=== PATIENT | male | born 1935 | race Caucasian/White ===

== ENCOUNTER 2017-11-05 16:55 | Emergency (ER) | payer MEDICARE, BC ==
[~2017-11-05] VITALS: Ht 182.9 cm; Wt 93.6 kg
[2017-11-05 17:00] VITALS: Ht 182.9 cm; Wt 93.6 kg
[2017-11-05] MEDS ORDERED: COUMADIN1 MG (17:03)
[2017-11-05] MEDS ORDERED: TYLENOL W/CODEI1 TAB PO (19:39)
[2017-11-06 04:22] VITALS: BP 118/88
== END 2017-11-05 20:10 | disposition home or self-care (01) ==
LOC: D.ER 16:55
DX: S16.1XXA Strain of muscle, fascia and tendon at neck level, initial encounter (principal); V43.62XA Car passenger injured in collision with other type car in traffic accident, initial encounter; Y93.89 Activity, other specified; Y92.410 Unspecified street and highway as the place of occurrence of the external cause; S39.012A Strain of muscle, fascia and tendon of lower back, initial encounter; M54.6 Pain in thoracic spine

== ENCOUNTER → 2018-06-03 16:41 | Outpatient (CLI) | payer MEDICARE, BC ==
[2017-11-05 17:00] VITALS: BMI 28.0
[~2018-06-03 16:41] MED LIST: COUMADIN1 MG; TYLENOL W/CODEI1 TAB PO
== END | disposition home or self-care (01) ==
LOC: D.US 16:41
DX: R60.0 Localized edema (principal)

== ENCOUNTER 2019-11-25 17:52 | Emergency (ER) | payer OTHER ==
[~2019-11-25] VITALS: Ht 182.9 cm; Wt 90.9 kg
[2019-11-25 18:00] VITALS: Ht 182.9 cm; Wt 90.9 kg
[2019-11-25 18:27] LABS: HEMATOCRIT 43.1 % (42.0-54.0); HEMOGLOBIN 14.3 g/dL (13.5-17.5); LYMPHOCYTES 30.1 % (15-50); MCH 30.3 pg (26.0-34.0); MCHC 33.2 g/dL (31.0-37.0); MCV 91.3 fL (80.0-100.0); MEAN PLATELET VOLUME 8.9 fL (7.4-10.4); NEUTROPHILS 51.5 % (40-80); PLATELET COUNT 186 10x3/uL (130-400); RBC 4.72 10x6/uL (4.20-6.10); RDW 13.6 % (11.5-14.5); WBC 5.8 10x3/uL (4.8-10.8)
[2019-11-25] MEDS ORDERED: PHOSLO667 MG PO (18:35)
[2019-11-25] MEDS ORDERED: K-DUR20 MEQ PO (18:35)
[2019-11-25] MEDS ORDERED: ELIQUIS5 MG PO (18:35)
[2019-11-25 18:36] LABS: CALC OSMOLALITY 275 mosm/kg (275-300); CALCIUM 9.1 mg/dL (8.5-10.1); CHLORIDE - SERUM 101 mmol/L (98-107); CREATININE - SERUM 1.4 mg/dL (0.6-1.3); POTASSIUM - SERUM 3.4 mmol/L (3.5-5.1); SODIUM 137 mmol/L (136-145); UREA NITROGEN 18 mg/dL (7-18); eGFR NON AFRICAN AMERICAN 51 mL/min (90-120)
[2019-11-25] MEDS ORDERED: LISINOPRIL-HCT1 EAC4 PO (18:36)
[2019-11-25] MEDS ORDERED: NEURONTIN600 MG PO (18:36)
[2019-11-25] MEDS ORDERED: VITAMIN D1000 UNIT PO (18:36)
[2019-11-25 18:37] LABS: GLUCOSE 102 mg/dL (74-106)
[2019-11-25] MEDS ORDERED: ZOCOR10 MG PO (18:37)
[2019-11-25] MEDS ORDERED: TYLENOL W/CODEI1 TAB (18:37)
[2019-11-25 18:45] LABS: ALBUMIN 3.6 g/dL (3.4-5.0); ALKALINE PHOSPHATASE 81 U/L (30-120); ALT (SGPT) 24 U/L (10-68); AMYLASE - SERUM 30 U/L (25-115); BILIRUBIN - TOTAL 0.31 mg/dL (0.2-1.3); LIPASE 170 U/L (73-393); PROTEIN - SERUM 6.9 g/dL (6.4-8.2)
[2019-11-25 18:47] LABS: TROPONIN-I < 0.017 ng/mL (0.000-0.060)
[2019-11-25 19:18] LABS: BILIRUBIN NEGATIVE (NEGATIVE); GLUCOSE NEGATIVE (NEGATIVE); KETONE NEGATIVE (NEGATIVE); NITRITE NEGATIVE (NEGATIVE); SPECIFIC GRAVITY 1.015 (1.005-1.020); UROBILINOGEN NORMAL (NORMAL)
[2019-11-25] MEDS ORDERED: LOMOTIL 2.5-0.1 EAC1 PO (20:20)
[2019-11-25] MEDS ORDERED: ZOFRAN ODT4 MG/UDTAB PO (20:20)
[2019-11-25 20:41] VITALS: BP 140/92
== END 2019-11-25 20:42 | disposition home or self-care (01) ==
LOC: D.ER 17:52
PROVIDERS: Family Medicine
DX: R19.7 Diarrhea, unspecified (principal); E11.9 Type 2 diabetes mellitus without complications; Z86.73 Personal history of transient ischemic attack (TIA), and cerebral infarction without residual deficits; I10 Essential (primary) hypertension; J44.9 Chronic obstructive pulmonary disease, unspecified

== ENCOUNTER 2019-11-28 12:27 | Emergency (ER) | payer OTHER ==
[~2019-11-28] VITALS: Ht 182.9 cm; Wt 81.8 kg
[~2019-11-28 12:27] MED LIST changes: +ELIQUIS5 MG PO; +K-DUR20 MEQ PO; +LISINOPRIL-HCT1 EAC4 PO; +LOMOTIL 2.5-0.1 EAC1 PO; +NEURONTIN600 MG PO; +PHOSLO667 MG PO; +TYLENOL W/CODEI1 TAB; +VITAMIN D1000 UNIT PO; +ZOCOR10 MG PO; +ZOFRAN ODT4 MG/UDTAB PO
[2019-11-28 12:36] VITALS: Ht 182.9 cm; Wt 81.8 kg
[2019-11-28 13:36] LABS: BASOPHILS 0.2 % (0-2); EOSINOPHILS 5.3 % (0-7); HEMATOCRIT 41.1 % (42.0-54.0); HEMOGLOBIN 13.5 g/dL (13.5-17.5); IMMATURE GRANULOCYTES 0.2 % (0-5); LYMPHOCYTES 29.7 % (15-50); MCH 30.3 pg (26.0-34.0); MCHC 32.8 g/dL (31.0-37.0); MCV 92.2 fL (80.0-100.0); MEAN PLATELET VOLUME 9.1 fL (7.4-10.4); MONOCYTES 12.3 % (2-11); NEUTROPHILS 52.3 % (40-80); PLATELET COUNT 181 10x3/uL (130-400); RBC 4.46 10x6/uL (4.20-6.10); RDW 13.6 % (11.5-14.5); WBC 6.2 10x3/uL (4.8-10.8)
[2019-11-28 14:02] LABS: BILIRUBIN NEGATIVE (NEGATIVE); GLUCOSE NEGATIVE (NEGATIVE); KETONE NEGATIVE (NEGATIVE); NITRITE NEGATIVE (NEGATIVE); SPECIFIC GRAVITY 1.015 (1.005-1.020); UROBILINOGEN NORMAL (NORMAL)
[2019-11-28 14:04] LABS: ANION GAP 8.2 mmol/L (8-16); CALCIUM 8.8 mg/dL (8.5-10.1); CARBON DIOXIDE 31.3 mmol/L (21.0-32.0); CREATININE - SERUM 1.3 mg/dL (0.6-1.3); POTASSIUM - SERUM 3.5 mmol/L (3.5-5.1)
[2019-11-28 14:09] LABS: ALBUMIN 3.6 g/dL (3.4-5.0); BILIRUBIN - TOTAL 0.4 mg/dL (0.2-1.3); PROTEIN - SERUM 6.1 g/dL (6.4-8.2)
[2019-11-28] MEDS ORDERED: LEVOFLOXACIN500 MG PO (15:44)
[2019-11-28] MEDS ORDERED: FLORASTOR250 MG PO (15:44)
[2019-11-28] MEDS ORDERED: FLAGYL500 MG PO (15:44)
[2019-11-28 17:42] VITALS: BP 135/80
== END 2019-11-28 17:44 | disposition home or self-care (01) ==
LOC: D.ER 12:27
PROVIDERS: Family Medicine
DX: K57.92 Diverticulitis of intestine, part unspecified, without perforation or abscess without bleeding (principal); R10.9 Unspecified abdominal pain; R19.7 Diarrhea, unspecified; E11.9 Type 2 diabetes mellitus without complications; I10 Essential (primary) hypertension; J44.9 Chronic obstructive pulmonary disease, unspecified; Z86.73 Personal history of transient ischemic attack (TIA), and cerebral infarction without residual deficits

== ENCOUNTER 2020-01-22 11:23 | Emergency (ER) | payer OTHER ==
[~2020-01-22] VITALS: Ht 182.9 cm; Wt 80.0 kg
[~2020-01-22 11:23] MED LIST changes: +FLAGYL500 MG PO; +FLORASTOR250 MG PO; +LEVOFLOXACIN500 MG PO
[2020-01-22 11:52] VITALS: Ht 182.9 cm; Wt 80.0 kg
[2020-01-22 12:23] LABS: BASOPHILS 0.3 % (0-2); EOSINOPHILS 2.8 % (0-7); HEMOGLOBIN 13.7 g/dL (13.5-17.5); IMMATURE GRANULOCYTES 0.3 % (0-5); MCH 30.8 pg (26.0-34.0); MCHC 33.4 g/dL (31.0-37.0); MCV 92.1 fL (80.0-100.0); MEAN PLATELET VOLUME 9.2 fL (7.4-10.4); MONOCYTES 10.5 % (2-11); NEUTROPHILS 61.1 % (40-80); PLATELET COUNT 192 10x3/uL (130-400); RBC 4.45 10x6/uL (4.20-6.10); RDW 14.1 % (11.5-14.5); WBC 6.7 10x3/uL (4.8-10.8)
[2020-01-22 12:38] LABS: ANION GAP 9.7 mmol/L (8-16); CALCIUM 9.4 mg/dL (8.5-10.1); CARBON DIOXIDE 29.6 mmol/L (21.0-32.0); CREATININE - SERUM 1.1 mg/dL (0.6-1.3); POTASSIUM - SERUM 3.3 mmol/L (3.5-5.1)
[2020-01-22 12:44] LABS: ALBUMIN 3.5 g/dL (3.4-5.0); BILIRUBIN - TOTAL 0.36 mg/dL (0.2-1.3); PROTEIN - SERUM 6.3 g/dL (6.4-8.2)
[2020-01-22 15:56] LABS: BILIRUBIN NEGATIVE (NEGATIVE); KETONE NEGATIVE (NEGATIVE); NITRITE NEGATIVE (NEGATIVE); UROBILINOGEN NORMAL (NORMAL)
[2020-01-22 16:59] VITALS: BP 132/68
== END 2020-01-22 17:00 | disposition home or self-care (01) ==
LOC: D.ER 11:23
PROVIDERS: Family Medicine
DX: R19.7 Diarrhea, unspecified (principal); E86.0 Dehydration; I10 Essential (primary) hypertension; Z95.5 Presence of coronary angioplasty implant and graft; J44.9 Chronic obstructive pulmonary disease, unspecified; J45.909 Unspecified asthma, uncomplicated

== ENCOUNTER 2020-10-18 14:17 | Emergency (ER) | payer OTHER ==
[~2020-10-18] VITALS: Ht 182.9 cm; Wt 79.1 kg
[2020-10-18 14:18] VITALS: BP 148/89; Ht 182.9 cm; Wt 79.1 kg
[2020-10-18 14:45] LABS: BASOPHILS 0.2 % (0-2); EOSINOPHILS 0.4 % (0-7); HEMATOCRIT 40.2 % (42.0-54.0); HEMOGLOBIN 13.2 g/dL (13.5-17.5); LYMPHOCYTES 8.7 % (15-50); MCH 30.5 pg (26.0-34.0); MCHC 32.9 g/dL (31.0-37.0); MCV 92.6 fL (80.0-100.0); MEAN PLATELET VOLUME 6.8 fL (7.4-10.4); MONOCYTES 10.4 % (2-11); NEUTROPHILS 80.3 % (40-80); PLATELET COUNT 207 10x3/uL (130-400); RBC 4.34 10x6/uL (4.20-6.10); RDW 14.6 % (11.5-14.5); WBC 9.2 10x3/uL (4.8-10.8)
[2020-10-18 15:03] LABS: CALC OSMOLALITY 280 mosm/kg (275-300); CALCIUM 9.1 mg/dL (8.5-10.1); CARBON DIOXIDE 27.1 mmol/L (21.0-32.0); CHLORIDE - SERUM 103 mmol/L (98-107); CREATININE - SERUM 1.8 mg/dL (0.6-1.3); GLUCOSE 121 mg/dL (74-106); POTASSIUM - SERUM 3.7 mmol/L (3.5-5.1); SODIUM 140 mmol/L (136-145); UREA NITROGEN 16 mg/dL (7-18); eGFR NON AFRICAN AMERICAN 38 mL/min (90-120)
[2020-10-18 15:07] LABS: ALBUMIN 3.5 g/dL (3.4-5.0); ALKALINE PHOSPHATASE 102 U/L (30-120); ALT (SGPT) 22 U/L (10-68); AMYLASE - SERUM 31 U/L (25-115); BILIRUBIN - TOTAL 0.44 mg/dL (0.2-1.3); LIPASE 55 U/L (73-393); PROTEIN - SERUM 6.6 g/dL (6.4-8.2)
[2020-10-18 15:08] LABS: TROPONIN-I < 0.017 ng/mL (0.000-0.060)
[2020-10-18 16:14] LABS: BILIRUBIN NEGATIVE (NEGATIVE); KETONE NEGATIVE (NEGATIVE); NITRITE NEGATIVE (NEGATIVE); UROBILINOGEN NORMAL mg/dL (< 2)
[2020-10-18 16:16] LABS: WHITE CELLS - URINE 0-5 HPF (0-1)
[2020-10-18] MEDS ORDERED: MACROBID100 MG PO (17:51)
== END 2020-10-18 18:03 | disposition home or self-care (01) ==
LOC: D.ER 14:17
PROVIDERS: Family Medicine
DX: N39.0 Urinary tract infection, site not specified (principal); R11.10 Vomiting, unspecified; R41.0 Disorientation, unspecified; M25.552 Pain in left hip